=== PATIENT | female | born 2000 | race Two or more races ===

== ENCOUNTER 2020-05-12 16:29 | Emergency (ER) | payer OTHER ==
[~2020-05-12] VITALS: Ht 160 cm; Wt 77.3 kg
--- NOTE | 2020-05-12 16:30 | NUR ---
PT BIB [facility] FROM [facility] WHERE SHE INGESTED "EDIBLES" AROUND 1300 AND 2 SHOTS OF ALCOHOL AT 1400, AND THEN LOST CONSCIOUSNESS. WHEN EMS ARRIVED ON SCENE, PT WAS VERY AGITATED WITH HR IN 160s. MEDICATED WITH 1MG VERSED AND 4MG ZOFRAN EN ROUTE. PT ARRIVES TO ED SLEEPY, AROUSES TO VOICE. HR NOW 130s. COUSIN AT BS. PT IS FROM [place], STAYING HERE UNTIL FRIDAY.
--- NOTE | 2020-05-12 16:51 | NUR ---
ERP IN TO SEE PT.
[2020-05-12 17:18] LABS: BASOPHILS % (AUTO) 0 % (0-1); EOSINOPHILS % (AUTO) 1 % (1-7); LYMPHOCYTES % (AUTO) 22 % (22-44); MEAN CORPUSCULAR HEMOGLOBIN 27.6 pg (27.0-34.8); MEAN CORPUSCULAR HGB CONC 32.7 g/dL (32.4-35.8); MEAN PLATELET VOLUME 8.7 fL (7.4-10.4); MONOCYTES % (AUTO) 7 % (2-9); NEUTROPHILS % (AUTO) 70 % (42-75); PLATELET COUNT 215 x10^3/uL (130-400); RED BLOOD COUNT 4.83 x10^6/uL (3.82-5.3); RED CELL DISTRIBUTION WIDTH 12.7 % (9.6-15.2)
[2020-05-12 17:22] LABS: MD NO
[2020-05-12 17:29] LABS: ALANINE AMINOTRANSFERASE 14 U/L (12-78); ANION GAP 6 mmol/L (5-15); CHLORIDE 109 mmol/L (98-107); CREATININE 1.12 mg/dL (0.55-1.02)
[2020-05-12] MEDS ORDERED: SODIUM CHLORIDE 0.9% 1,000ML IVBOLUS ONE (17:30)
[2020-05-12 17:33] LABS: ALKALINE PHOSPHATASE 76 U/L (45-117); BILIRUBIN,TOTAL 0.2 mg/dL (0.2-1.0); TOTAL PROTEIN 7.5 g/dL (6.4-8.2)
--- NOTE | 2020-05-12 17:46 | NUR ---
PT MORE AWAKE NOW BUT TEARFUL AT TIMES. IV BOLUS INFUSING. COUSIN REMAINS AT BS.
--- NOTE | 2020-05-12 18:51 | NUR ---
PT AMBULATED TO BR WITHOUT DIFFICULTY. STATES SHE FEELS "SLEEPY" BUT OTHERWISE DOING BETER. UDS SENT. COUSIN REMAINS AT BS. REPORTED TO MAYKEL CHAVARRIA.
--- NOTE | 2020-05-12 19:00 | NUR ---
Received report, assumed care of 20 year old female to ED for marijuana edible ingestion and etoh intoxication. She is currently resting in bed AAO x 4. Friend at bedside. Awaiting dispo. Will continue to monitor.
[2020-05-12 19:20] LABS: AMPHETAMINE SCREEN, URINE Negative (Negative); BARBITURATE SCREEN, URINE Negative (Negative); BENZODIAZEPINE SCREEN, URINE Positive (Negative); CANNABINOID SCREEN, URINE Positive (Negative); COCAINE SCREEN, URINE Negative (Negative); METHADONE SCREEN, URINE Negative (Negative); OPIATE SCREEN, URINE Negative (Negative)
[2020-05-12 21:12] VITALS: BP 121/68
--- NOTE | 2020-05-12 21:13 | NUR ---
PATIENT IS AMBULATORY WITH A STEADY GAIT. SHE IS IN NO APPARENT DISTRESS. FRIEND AT BEDSIDE. WILL DRIVE PATIENT HOME. VSS. PATIENT TO BE DISCHARGED.
== END 2020-05-12 21:20 | disposition home or self-care (01) ==
LOC: ED 17:29
DX: F12.10 Cannabis abuse, uncomplicated (principal); R00.0 Tachycardia, unspecified; F41.9 Anxiety disorder, unspecified
CPT/HCPCS: 36415; 80053; 80307; 84703; 85025; 93005; 96360; 99284; J7030